=== PATIENT | female | born 1965 ===

== ENCOUNTER 2016-10-15 09:49 | Emergency (ER) | payer OTHER ==
--- NOTE | 2016-10-15 21:29 | RAD ---
Right forearm two views History: Pain. Comparison: None available. Findings: No evidence of acute displaced fracture or dislocation. Impression: Negative acute. If pain persists, consider MRI.
--- NOTE | 2016-10-15 21:29 | RAD ---
PROCEDURE: Right Wrist Radiographs. HISTORY: Injury COMPARISON: None. FINDINGS: BONES: Ulnar styloid osseous hypertrophy and squaring. . No fracture. JOINTS: Radiocarpal joint space narrowing. No dislocation. SOFT TISSUES: Normal. OTHER FINDINGS: None. IMPRESSION: No fracture or dislocation. . Mild degenerative changes
== END 2016-10-15 16:20 | disposition home or self-care (01) ==
LOC: C.ER 09:49
DX: S63.501A Unspecified sprain of right wrist, initial encounter (principal); X50.0XXA Overexertion from strenuous movement or load, initial encounter
CPT/HCPCS: 73090; 73110; 96372; 99281; J1885